=== PATIENT | female | born 1955 | race Caucasian/White ===

== ENCOUNTER 2021-04-23 09:58 | Inpatient (IN) ==
[2021-04-23] MEDS ORDERED: SODIUM CHLORIDE 0.9% 1000ML 1,000 ML IV ONE (10:16)
--- NOTE | 2021-04-23 10:18 | Emergency Department Note ---
Impression & Plan Pulmonary embolism, Hypoxia, Elevated troponin, SARS-CoV-2 positive ED Provider Note Name: TARAH LEVIN Age: 66 Sex: F Arrives Via: Walk-In Informant: Patient ED Provider: Carlos Pack MD Chief Complaint: Chest Pain Impression: As Per Impressions Above Medical Decision Makin yr old female with history DLP/HTN arrives with acute chest pain and olena rtness of breath this morning. Right foot in boot since fracture 3 weeks ago and has been having increasing right leg pain and swelling to thigh. Tachy and hypoxic on arrival which improved with NC. Not hypotensive. IV established and emergently sent to CT for PE study. Extensive clot, reviewed with CCM who agree with holding off on TPA currently, and will start with heparin bolus/gtt. He ma kes clear no recent injuries, headache nor rectal bleeding nor ulcer issues. Understands risks of blood thinner use. She is stable on NC O2 and HR improving with NSS bolus. Trop is elevated with some RBBB on EKG, suspect PE related rather than ACS. Covid is positive, though I will note she reports having had covid 1.5 months ago, this may have further contributed to her clotting issues? She what hospitalized on IV heparin for further management. Prior Medical Record and Triage/Nursing Notes reviewed by Me Additional history obtained from chart Differentials:Cardiac ischemia, aortic dissection, pulmonary embolism, pneumothorax, pneumonia, pericarditis, myocarditis, esophageal rupture, GERD, cholecystitis, pancreatitis, musculoskeletal, as well as other pathologies. Vital Signs: reviewed and remarkable for tachy, hypoxia Interventions: Heparin bolus/gtt Labs:Reviewed and remarkable for +trop, +covid Imaging:See Below EKG:Per My Interpretation: Indication Chest Pain: Sinus Tachy 118 bpm, qtc 431. Incomplete RBBB with diffuse ant/lat ST depressions. No ectopy. No previous for comparison Cardiac/Tele Monitoring: Cardiac Monitoring: An Order was placed for continuous cardiac monitoring. The monitor shows a rate of 115 with a sinus tachy rhythm. Consults:Dr Reina INFANTE Hospitalist Plan: Disposition:Hospitalization. Condition: Fair History of Present Illness:66 yr old female arrives for evaluation of chest pain. Patient notes she broke her right foot a few weeks ago and has been in a walking boot. The last few days increasing right leg swelling that has some discomfort to mid thigh. Associated with pain on ambulation. This morning acute onset bilateral chest pain and shortness of breath. Notes near syncope. Denies fevers, chills, cough, syncope, headache, neck pain, rashes, bleeding, rectal bleeding, abdominal pain, nausea, vomiting, back pain, nor other sy mptoms. No history of similar issues. No history of DVT/PE. Nothing makes better nor worse. No medications prior to arrival. ROS: See above HPI for pertinent positives & negatives. A total of 10 systems reviewed and were otherwise negative. Past Medical History:HTN, DLP Past Surgical History:None Family History:No History of PE/DVT Social History:Employed (currently on leave), non-smoker Home Medications:None Allergies:Penicillin Vitals:Blood Pressure: 150/100, Pulse 99, RR 24, T 36.7C, O2 96% on 2L NC Physical Exam: GENERAL: Patient is uncomfortable/anxious appearing and in mild distress. EYES: No scleral icterus, unremarkable pupils. ENT: Mucous membranes moist, no nasal congestion. NECK: No masses appreciated, nomeningismus, trachea is midline. RESPIRATORY: Mild tachypnea though no dyspnea. Clear to auscultation and equal bilaterally. No wheeze, no rhonchi. CARDIOVASCULAR: Tachy.No murmurs, rubs, gallops appreciated. GASTROINTESTINAL: Abdomen soft, non-tender, no peritonitis.Bowel sounds positive.No masses appreciated. BACK: No midline tenderness, no CVA tenderness EXTREMITIES: Swelling with nonpitting edema right lower leg from below knee with right foot in boot. Otherwise normal motion all extremities, no cyanosis, no edema. NEUROLOGIC: Alert and oriented, no acute motor or sensory deficits, no focal weakness, cranial nerves grossly intact. SKIN: No rash, no jaundice, no diaphoresis. PSYCH: Appropriate GCS: 15 ED Course: Times/Reassessments: stable, breathing comfortably Carlos Pack MD Past Med/Surg History Medical History (Updated 04/25/21 @ 09:32 by Marino Lopez) High cholesterol Hypertension Pulmonary embolism Right leg DVT Social History Smoking Status: Never smoker Preferred Language: Uzbek Communication Ability: Effective Brazer Induction Required: No Beliefs That Will Affect Care: None Current Living Situation: Significant Other Current Living Situation Comment: 1 story home Feels Safe at Home: Yes Assistive Devices: Glasses Allergies Allergies Allergy/AdvReac Type Severity Reaction Status Date / Time Penicillins Allergy Unknown Unknown Unverified 04/23/21 11:57 Home Meds Home Medications Medication Instructions Recorded Confirmed No Known Home Medications 04/23/21 04/23/21 Results & Data (ED) Vital Signs Vital Signs - 24 hr 04/23/21 10:03 04/23/21 10:20 04/23/21 10:30 Temperature 36.7 C Temperature Source Temporal Artery Scan Pulse Rate 119 H 115 H Pulse Rate from SpO2 Sensor 115 H Respiratory Rate 18 22 Blood Pressure 136/97 162/116 H Blood Pressure Mean 110 131 Pulse Oximetry 90 97 Oxygen Delivery Method Room Air Room Air Nasal Cannula Oxygen Flow Rate 2 Sepsis Recent Fever Within 48 Hours No Sepsis New/Unexplained Change in Mental Status No Sepsis Action Taken by Nursing No Action Required 04/23/21 11:00 04/23/21 11:30 04/23/21 12:00 Temperature Temperature Source Pulse Rate 117 H 122 H 116 H Pulse Rate from SpO2 Sensor 115 H Respiratory Rate 22 21 23 Blood Pressure 131/101 H 167/111 H 148/103 H Blood Pressure Mean 111 129 118 Pulse Oximetry 97 98 Oxygen Delivery Method Nasal Cannula Oxygen Flow Rate 2 Sepsis Recent Fever Within 48 Hours Sepsis New/Unexplained Change in Mental Status Sepsis Action Taken by Nursing 04/23/21 12:30 04/23/21 13:00 04/23/21 13:30 Temperature Temperature Source Pulse Rate 99 H 96 H 97 H Pulse Rate from SpO2 Sensor 99 H 97 H 99 H Respiratory Rate 21 19 19 Blood Pressure 136/92 119/86 123/97 Blood Pressure Mean 106 97 105 Pulse Oximetry 96 94 92 Oxygen Delivery Method Oxygen Flow Rate Sepsis Recent Fever Within 48 Hours Sepsis New/Unexplained Change in Mental Status Sepsis Action Taken by Nursing 04/23/21 14:00 Temperature Temperature Source Pulse Rate 99 H Pulse Rate from SpO2 Sensor 101 H Respiratory Rate 24 Blood Pressure 150/100 H Blood Pressure Mean 116 Pulse Oximetry 96 Oxygen Delivery Method Oxygen Flow Rate Sepsis Recent Fever Within 48 Hours Sepsis New/Unexplained Change in Mental Status Sepsis Action Taken by Nursing Laboratory Data Result diagrams: 04/24/21 06:34 04/23/21 10:15 Lab Results 04/23/21 04/23/21 04/23/21 Range/Units 10:15 10:15 10:15 WBC 9.62 (4.8-10.8) K/uL RBC 4.38 (4.2-5.4) M/uL Hgb 14.3 (12.0-16.0) g/dL POC Hgb (12.0-16.0) g/dl Hct 42.5 (37-47) % POC Hct (37-47) % MCV 97.0 (80-100) fL MCH 32.6 (25-34) pg MCHC 33.6 (32-36) g/dL RDW Std Deviation 47.1 H (36.4-46.3) fL RDW Coeff of Luis E 13.3 (11.5-14.5) % Plt Count 189 (130-400) K/uL MPV 9.9 (7.4-10.4) fL Immature Gran % (Auto) 0.2 % Neut % (Auto) 76.8 % Lymph % (Auto) 13.4 % Griggs % (Auto) 8.2 % Eos % (Auto) 1.0 % Baso % (Auto) 0.4 % Neut # (Auto) 7.38 H (1.4-6.5) K/uL Lymph # (Auto) 1.29 (1.2-3.4) K/uL Griggs # (Auto) 0.79 H (0.11-0.59) K/uL Eos # (Auto) 0.10 (0-0.5) K/uL Baso # (Auto) 0.04 (0-0.2) K/uL Immature Gran # (Auto) 0.02 (0.00-0.02) K/uL PT 9.3 (9.0-12.0) Seconds INR 0.9 (0.9-1.1) APTT 23.2 (21.0-31.0) Seconds PTT Ratio 0.9 POC Sodium (135-144) mmol/L Sodium 137 (136-145) mmol/L POC Potassium (3.3-5.0) mmol/L Potassium 3.9 (3.5-5.1) mmol/L POC Chloride (101-112) mmol/L Chloride 106 (98-107) mmol/L Carbon Dioxide 26 (21-32) mmol/L POC Total CO2 (24-31) mmol/L Anion Gap 5.0 (3-11) POC Anion Gap (16-25) mmol/L POC BUN (7-18) mg/dl BUN 18 (7-18) mg/dl Creatinine 0.81 (0.6-1.2) mg/dl POC Creatinine (0.6-1.3) mg/dl Est Cr Clr Drug Dosing 77.6 ml/min Est GFR ( Amer) 89.0 ml/min Est GFR (Non-Af Amer) 76.8 ml/min BUN/Creatinine Ratio 22.4 H (10-20) Glucose 112 H (70-99) mg/dl POC Glucose (other) (70-99) mg/dl Calcium 9.4 (8.5-10.1) mg/dl POC Ioniz Calcium Maurizio (1.12-1.32) mmol/l Magnesium 2.2 (1.8-2.4) mg/dl Total Bilirubin 0.5 (0.2-1) mg/dl Direct Bilirubin 0.1 (0-0.2) mg/dl AST 23 (15-37) U/L ALT 34 (12-78) U/L Alkaline Phosphatase 139 H (45-117) U/L Troponin I 0.209 H* (0-0.045) ng/ml Total Protein 7.8 (6.4-8.2) gm/dl Albumin 3.9 (3.4-5.0) gm/dl Lipase 149 (73-393) U/L Urine Color Urine Appearance (Clear) Urine pH (4.5-7.5) Ur Specific Clifton (1.000-1.030) Urine Protein (Negative) Urine Glucose (UA) (Negative) Urine Ketones (Negative) Urine Blood (Negative) Urine Nitrite (Negative) Urine Bilirubin (Negative) Urine Urobilinogen (Negative) Ur Leukocyte Esterase (Negative) COVID-19 Eval Order SARS-CoV-2 (PCR) (Negative) 04/23/21 04/23/21 04/23/21 Range/Units 10:22 11:31 11:31 WBC (4.8-10.8) K/uL RBC (4.2-5.4) M/uL Hgb (12.0-16.0) g/dL POC Hgb 13.9 (12.0-16.0) g/dl Hct (37-47) % POC Hct 41 (37-47) % MCV (80-100) fL MCH (25-34) pg MCHC (32-36) g/dL RDW Std Deviation (36.4-46.3) fL RDW Coeff of Luis E (11.5-14.5) % Plt Count (130-400) K/uL MPV (7.4-10.4) fL Immature Gran % (Auto) % Neut % (Auto) % Lymph % (Auto) % Griggs % (Auto) % Eos % (Auto) % Baso % (Auto) % Neut # (Auto) (1.4-6.5) K/uL Lymph # (Auto) (1.2-3.4) K/uL Griggs # (Auto) (0.11-0.59) K/uL Eos # (Auto) (0-0.5) K/uL Baso # (Auto) (0-0.2) K/uL Immature Gran # (Auto) (0.00-0.02) K/uL PT (9.0-12.0) Seconds INR (0.9-1.1) APTT (21.0-31.0) Seconds PTT Ratio POC Sodium 140 (135-144) mmol/L Sodium (136-145) mmol/L POC Potassium 4.0 (3.3-5.0) mmol/L Potassium (3.5-5.1) mmol/L POC Chloride 103 (101-112) mmol/L Chloride (98-107) mmol/L Carbon Dioxide (21-32) mmol/L POC Total CO2 25 (24-31) mmol/L Anion Gap (3-11) POC Anion Gap 17.0 (16-25) mmol/L POC BUN 18 (7-18) mg/dl BUN (7-18) mg/dl Creatinine (0.6-1.2) mg/dl POC Creatinine 0.7 (0.6-1.3) mg/dl Est Cr Clr Drug Dosing ml/min Est GFR ( Amer) ml/min Est GFR (Non-Af Amer) ml/min BUN/Creatinine Ratio (10-20) Glucose (70-99) mg/dl POC Glucose (other) 104 H (70-99) mg/dl Calcium (8.5-10.1) mg/dl POC Ioniz Calcium Maurizio 1.24 (1.12-1.32) mmol/l Magnesium (1.8-2.4) mg/dl Total Bilirubin (0.2-1) mg/dl Direct Bilirubin (0-0.2) mg/dl AST (15-37) U/L ALT (12-78) U/L Alkaline Phosphatase (45-117) U/L Troponin I (0-0.045) ng/ml Total Protein (6.4-8.2) gm/dl Albumin (3.4-5.0) gm/dl Lipase (73-393) U/L Urine Color Urine Appearance (Clear) Urine pH (4.5-7.5) Ur Specific Clif[place] (1.000-1.030) Urine Protein (Negative) Urine Glucose (UA) (Negative) Urine Ketones (Negative) Urine Blood (Negative) Urine Nitrite (Negative) Urine Bilirubin (Negative) Urine Urobilinogen (Negative) Ur Leukocyte Esterase (Negative) COVID-19 Eval Order Covid19 at [facility] SARS-CoV-2 (PCR) POSITIVE A* (Negative) 04/23/21 Range/Units 11:35 WBC (4.8-10.8) K/uL RBC (4.2-5.4) M/uL Hgb (12.0-16.0) g/dL POC Hgb (12.0-16.0) g/dl Hct (37-47) % POC Hct (37-47) % MCV (80-100) fL MCH (25-34) pg MCHC (32-36) g/dL RDW Std Deviation (36.4-46.3) fL RDW Coeff of Luis E (11.5-14.5) % Plt Count (130-400) K/uL MPV (7.4-10.4) fL Immature Gran % (Auto) % Neut % (Auto) % Lymph % (Auto) % Griggs % (Auto) % Eos % (Auto) % Baso % (Auto) % Neut # (Auto) (1.4-6.5) K/uL Lymph # (Auto) (1.2-3.4) K/uL Griggs # (Auto) (0.11-0.59) K/uL Eos # (Auto) (0-0.5) K/uL Baso # (Auto) (0-0.2) K/uL Immature Gran # (Auto) (0.00-0.02) K/uL PT (9.0-12.0) Seconds INR (0.9-1.1) APTT (21.0-31.0) Seconds PTT Ratio POC Sodium (135-144) mmol/L Sodium (136-145) mmol/L POC Potassium (3.3-5.0) mmol/L Potassium (3.5-5.1) mmol/L POC Chloride (101-112) mmol/L Chloride (98-107) mmol/L Carbon Dioxide (21-32) mmol/L POC Total CO2 (24-31) mmol/L Anion Gap (3-11) POC Anion Gap (16-25) mmol/L POC BUN (7-18) mg/dl BUN (7-18) mg/dl Creatinine (0.6-1.2) mg/dl POC Creatinine (0.6-1.3) mg/dl Est Cr Clr Drug Dosing ml/min Est GFR ( Amer) ml/min Est GFR (Non-Af Amer) ml/min BUN/Creatinine Ratio (10-20) Glucose (70-99) mg/dl POC Glucose (other) (70-99) mg/dl Calcium (8.5-10.1) mg/dl POC Ioniz Calcium Maurizio (1.12-1.32) mmol/l Magnesium (1.8-2.4) mg/dl Total Bilirubin (0.2-1) mg/dl Direct Bilirubin (0-0.2) mg/dl AST (15-37) U/L ALT (12-78) U/L Alkaline Phosphatase (45-117) U/L Troponin I (0-0.045) ng/ml Total Protein (6.4-8.2) gm/dl Albumin (3.4-5.0) gm/dl Lipase (73-393) U/L Urine Color Yellow Urine Appearance Clear (Clear) Urine pH 6.0 (4.5-7.5) Ur Specific Clifton 1.026 (1.000-1.030) Urine Protein Negative (Negative) Urine Glucose (UA) Negative (Negative) Urine Ketones Negative (Negative) Urine Blood Negative (Negative) Urine Nitrite Negative (Negative) Urine Bilirubin Negative (Negative) Urine Urobilinogen Negative (Negative) Ur Leukocyte Esterase Negative (Negative) COVID-19 Eval Order SARS-CoV-2 (PCR) (Negative) Administered Medications Acetaminophen (Acetaminophen 325 Mg Tab) 650 mg PO Q4H PRN PRN Reason: Pain or Fever Stop: 05/23/21 11:57 Last Admin: 04/23/21 22:20 Dose: 650 mg Documented by: [id number] Apixaban (Apixaban 5 Mg Tablet) 10 mg PO BID CORY Stop: 05/02/21 09:14 Last Admin: 04/25/21 20:17 Dose: 10 mg Documented by: [id number] Admin: 04/25/21 09:44 Dose: 10 mg Documented by: [id number] Discontinued Medications Heparin Sodium (Porcine) (Heparin Sod (Porcine) 1000 Unit/Ml) 1 units IV NOW ONE Stop: 04/23/21 11:03 Last Admin: 04/23/21 11:13 Dose: 5,000 units Documented by: [id number] Cosigned by: [id number] Heparin Sodium/Dextrose (Heparin Iv Adult Wt-Based Standard With Bolus Protocol) 1 ea IV NOW STA; Protocol Stop: 04/23/21 10:48 Last Admin: 04/23/21 11:29 Dose: Not Given Documented by: [id number] Sodium Chloride (Nss 1000ml) 1,000 mls @ 999 mls/hr IV .Q1H1M ONE Stop: 04/23/21 11:16 Last Infusion: 04/23/21 11:27 Dose: 0 mls/hr Documented by: [id number] Admin: 04/23/21 10:20 Dose: 999 mls/hr Documented by: [id number] Heparin Sodium/Dextrose (Heparin Sodium/Dextrose) 25,000 units in 500 mls @ 0.02 mls/hr IV .Q24H CORY; Protocol Stop: 05/23/21 11:14 Last Titration: 04/24/21 06:44 Dose: 0 units/hr, 0 mls/hr Documented by: [id number] Cosigned by: [id number] Titration: 04/24/21 06:43 Dose: 1,250 units/hr, 25 mls/hr Documented by: [id number] Cosigned by: [id number] Titration: 04/24/21 06:42 Dose: 0 units/hr, 0 mls/hr Documented by: [id number] Cosigned by: [id number] Titration: 04/23/21 18:12 Dose: 1,200 units/hr, 24 mls/hr Documented by: [id number] Cosigned by: [id number] Admin: 04/23/21 11:12 Dose: 1,250 units/hr, 25 mls/hr Documented by: [id number] Cosigned by: [id number] Heparin Sodium/Dextrose (Heparin Sodium/Dextrose) 25,000 units in 500 mls @ 24 mls/hr IV .[id number] [facility]; Protocol Stop: 05/23/21 12:29 Last Titration: 04/25/21 09:20 Dose: 0 units/hr, 0 mls/hr Documented by: [id number] Cosigned by: [id number] Titration: 04/25/21 09:03 Dose: 1,200 units/hr, 24 mls/hr Documented by: [id number] Cosigned by: [id number] Titration: 04/25/21 06:49 Dose: 1,200 units/hr, 24 mls/hr Documented by: [id number] Cosigned by: [id number] Admin: 04/25/21 03:34 Dose: 1,200 units/hr, 24 mls/hr Documented by: [id number] Cosigned by: [id number] Titration: 04/25/21 03:34 Dose: 1,200 units/hr, 24 mls/hr Documented by: [id number] Cosigned by: [id number] Titration: 04/24/21 18:49 Dose: 1,200 units/hr, 24 mls/hr Documented by: [id number] Cosigned by: [id number] Admin: 04/24/21 07:59 Dose: 1,200 units/hr, 24 mls/hr Documented by: [id number] Cosigned by: [id number] Titration: 04/24/21 07:58 Dose: 0 units/hr, 0 mls/hr Documented by: [id number] Cosigned by: [id number] Titration: 04/24/21 07:58 Dose: 1,200 units/hr, 24 mls/hr Documented by: [id number] Cosigned by: [id number] Titration: 04/24/21 06:48 Dose: 1,200 units/hr, 24 mls/hr Documented by: [id number] Cosigned by: [id number] Titration: 04/24/21 01:24 Dose: 1,200 units/hr, 24 mls/hr Documented by: [id number] Cosigned by: [id number] Admin: 04/23/21 22:05 Dose: 1,200 units/hr, 24 mls/hr Documented by: [id number] Cosigned by: [id number] Ioversol (Optiray 320 125ml) 121 ml IV ONCE ONE Stop: 04/23/21 10:38 Last Admin: 04/23/21 10:40 Dose: 121 ml Documented by: [id number] Metoprolol Tartrate (Metoprolol Tartrate 25 Mg Tab) 12.5 mg PO BID CORY Stop: 05/23/21 11:14 Last Admin: 04/23/21 11:26 Dose: 12.5 mg Documented by: [id number] Imaging Data Radiologist's Impression: Chest CTA 04/23/21 10:16 CT angio chest PE protocol CLINICAL HISTORY: PE TECHNIQUE: Multidetector row helical CT of the chest was performed. Coronal and sagittal reformations were obtained. Automated dose lowering techniques and/or adjustment according to patient size were utilized for this exam. Comparison: None available at the time of this dictation. FINDINGS: Lungs and pleura: Large calcified granulomas are seen, the largest in the left lower lobe. Heart and pericardium: Heart size is normal. No pericardial effusion. No right heart strain is seen. Vessels: There is a occlusive pulmonary embolus in the right main pulmonary artery with extension into multiple upper and lower lobar and segmental arteries. Segmental pulmonary embolus is seen in the left lingula and multiple segmental/subsegmental emboli are noted in the left lower lobe. Mediastinum and josé: Unremarkable. Chest wall and lower neck: Unremarkable. Abdomen: Unremarkable. Bones: Degenerative changes in the thoracic spine. IMPRESSION: Multiple pulmonary emboli involving the right main pulmonary artery, left lower lobe artery, and multiple segmental/subsegmental branches bilaterally. No evidence of right heart strain. ACT 112: Positive. There are findings on this exam that require communication between the performing entity and the patient following Patient Test Result Information Act ([place] Act 112) guidelines. Electronically signed by: Brett Jimenez M.D. 04/23/2021 10:52 AM Chest X-Ray 04/23/21 10:16 XR chest 1V portable CLINICAL HISTORY: Chest pain, shortness of breath. Recent right leg fracture. TECHNIQUE: Single frontal radiograph of the chest was obtained. Comparison: None available at the time of this dictation. FINDINGS: No lines and tubes are seen. The cardiomediastinal silhouette is normal. The lungs are clear. No evidence of pleural effusion or pneumothorax. IMPRESSION: No acute chest disease. ACT 112: Negative or not required by law. Electronically signed by: Brett Jimenez M.D. 04/23/2021 10:37 AM Discharge Plan Visit Data Chief Complaint: Cardiac Assessment Stated Complaint: PAIN IN R SIDE OF CHEST,SOB,R FT SURGERY 3WKS AGO ED Provider: Carlos Pack Discharge Problem: Pulmonary embolism, Hypoxia, Elevated troponin, SARS-CoV-2 positive Patient Disposition: Admitted As Inpatient Discharge Instructions Interventions: ED Discharge Assessment Last Done: 04/23/21 15:42 Discharge Problem: Pulmonary embolism Qualifiers: Pulmonary embolism type: multiple subsegmental (without acute cor pulmonale) Qualified Code(s): I26.94 - Multiple subsegmental pulmonary emboli without acute cor pulmonale
[2021-04-23 10:34] LABS: iSTAT Creatinine 0.7 mg/dl (0.6-1.3); iSTAT Hemoglobin 13.9 g/dl (12.0-16.0); iSTAT Ionized Calcium 1.24 mmol/l (1.12-1.32)
[2021-04-23] MEDS ORDERED: OPTIRAY 320 125ml IV ONE (10:37)
[2021-04-23 10:38] LABS: INR 0.9 (0.9-1.1); Partial Thromboplastin Ratio 0.9; Partial Thromboplastin Time 23.2 Seconds (21.0-31.0); Prothrombin Time 9.3 Seconds (9.0-12.0)
--- NOTE | 2021-04-23 10:38 | XRay Report ---
XR chest 1V portable CLINICAL HISTORY: Chest pain, shortness of breath. Recent right leg fracture. TECHNIQUE: Single frontal radiograph of the chest was obtained. Comparison: None available at the time of this dictation. FINDINGS: No lines and tubes are seen. The cardiomediastinal silhouette is normal. The lungs are clear. No evid ence of pleural effusion or pneumothorax. IMPRESSION: No acute chest disease. ACT 112: Negative or not required by law. Electronically signed by: Brett Jimenez M.D. 04/23/2021 10:37 AM
[2021-04-23] MEDS ORDERED: Heparin IV Adult Wt-Based Standard WITH Bolus Protocol IV STA (10:47)
--- NOTE | 2021-04-23 10:53 | CT Scan Report ---
CT angio chest PE protocol CLINICAL HISTORY: PE TECHNIQUE: Multidetector row helical CT of the chest was performed. Coronal and sagittal reformations were obtained. Automated dose lowering techniques and/or adjustment according to patient size were u tilized for this exam. Comparison: None available at the time of this dictation. FINDINGS: Lungs and pleura: Large calcified granulomas are seen, the largest in the left lower lobe. Heart and pericardium: Heart size is normal. No pericardial effusion. No right heart strain is seen. Vessels: There is a occlusive pulmonary embolus in the right main pulmonary artery with extension int o multiple upper and lower lobar and segmental arteries. Segmental pulmonary embolus is seen in the l eft lingula and multiple segmental/subsegmental emboli are noted in the left lower lobe. Mediastinum and josé: Unremarkable. Chest wall and lower neck: Unremarkable. Abdomen: Unremarkable. Bones: Degenerative changes in the thoracic spine. IMPRESSION: Multiple pulmonary emboli involving the right main pulmonary artery, left lower lobe artery, and mult iple segmental/subsegmental branches bilaterally. No evidence of right heart strain. ACT 112: Positive. There are findings on this exam that require communication between the performing entity and the patient following Patient Test Result Information Act ([place] Act 112) guidelines. Electronically signed by: Brett Jimenez M.D. 04/23/2021 10:52 AM
[2021-04-23 10:55] LABS: Albumin Level 3.9 gm/dl (3.4-5.0); BUN Creatinine Ratio 22.4 (10-20); Bilirubin Direct 0.1 mg/dl (0-0.2); Calcium 9.4 mg/dl (8.5-10.1); Creatinine Clr Calc Pharmacy 77.6 ml/min; Est GFR (Non-African American) 76.8 ml/min; Magnesium 2.2 mg/dl (1.8-2.4); Potassium 3.9 mmol/L (3.5-5.1)
[2021-04-23 11:01] LABS: Basophils # (auto) 0.04 K/uL (0-0.2); Basophils % (auto) 0.4 %; Hematocrit (blood only) 42.5 % (37-47); Hemoglobin 14.3 g/dL (12.0-16.0); Immature Granulocytes # (auto) 0.02 K/uL (0.00-0.02); Immature Granulocytes % (auto) 0.2 %; Lymphocytes # (auto) 1.29 K/uL (1.2-3.4); Lymphocytes % (auto) 13.4 %; Mean Corpuscular Hemoglobin 32.6 pg (25-34); Mean Corpuscular Hgb Conc 33.6 g/dL (32-36); Mean Platelet Volume 9.9 fL (7.4-10.4); Monocytes # (auto) 0.79 K/uL (0.11-0.59); Monocytes % (auto) 8.2 %; Neutrophils # (auto) 7.38 K/uL (1.4-6.5); Neutrophils % (auto) 76.8 %; Platelet Count 189 K/uL (130-400); RDW Coefficient of Variation 13.3 % (11.5-14.5); RDW Standard Deviation 47.1 fL (36.4-46.3); Red Blood Count 4.38 M/uL (4.2-5.4); White Blood Count 9.62 K/uL (4.8-10.8)
--- NOTE | 2021-04-23 11:01 | Critical Care Consultation ---
Date of Consultation April 23, 2021 Assessment & Plan (1) Pulmonary embolism: Systemic anticoagulation with heparin -Echocardiogram (2) Right leg DVT: Systemic anticoagulation with heparin (3) Fracture of right foot: Continue current treatment (4) Tachycardia: Metoprolol 12.5 mg twice daily (5) Hypertension: Will be controlled in short-term with metoprolol (6) High cholesterol: Follow-up with primary care physician Patient not requiring critical care services would defer to hospitalist team. Supervising Physician Co-Signing Physician Notes Dr. Pinto was resident physician during care of patient. I separately evaluated patient for jaramillo portions of the history and the exam. I was present during the critical portion of medical decision making, and I discussed the case with the resident. I generally agree with the findings and plan. Passey score of 64 class I very low risk, patient has history of relatively recent trauma of having foot run over by skid steer I believe this is an adequate contraindication to systemic TPA especially in the setting of relatively stable hemodynamics. Agree with starting heparin and low-dose beta-juancarlos for the tachycardia. Echocardiogram pending, stable for telemetry status, no evidence of cor pulmonale noted on CT scan or clinical exam History of Present Illness Reason for Consultation: Pulmonary embolism Requesting Physician: Renny Pack History of Present Illness Patient is a 66-year-old female with a significant past medical history of hypertension hyperlipidemia who does not take medications admittedly for those medical issues who approximately 3 weeks ago suffered a traumatic injury to her right lower extremity when forklift forks were dropped on her leg she is seeing a medical provider for this. She has 2 fractured bones in her foot and is wearing a orthopedic boot. She presented with chest pain and shortness of breath on CT scan she was found to have near saddle pulmonary emboli. She is not passed out, she is not in extremis. Her pulmonary embolism severity score is 64 which is low risk she is hemodynamically stable. Allergies Allergy/AdvReac Type Severity Reaction Status Date / Time Penicillins Allergy Unknown Unknown Unverified 04/23/21 11:57 Home Medications Medication Instructions Recorded Confirmed Type No Known Home Medications 04/23/21 04/23/21 History Patient History Medical History High cholesterol Hypertension Social History Smoking Status: Never smoker Feels Safe at Home: Yes Review of Systems Review of Systems: Mild right anterior chest pain with deep inspiration, otherwise a 10 point review of systems been reviewed and is otherwise negative Physical Exam Physical Exam: General: Alert. nontoxic. Skin: Warm, dry, Head: Atraumatic Ears, nose, mouth and throat: airway patent Cardiovascular: Normal peripheral perfusion Respiratory: no respiratory distress, mild tachypnea, speaks in full sentences Gastrointestinal: Non distended Musculoskeletal: Right lower extremity is wrapped in a bandage, it is swollen larger than the left lower extremity Results & Data Results & Data ([facility]) Vital Signs (Past 12 Hours) Vital Signs Temp Pulse Resp BP Pulse Ox 04/23/21 10:03 36.7 C 119 H 18 136/97 90 Laboratory Results 04/23/21 04/23/21 04/23/21 Range/Units 10:22 10:15 10:15 WBC (4.8-10.8) K/uL RBC (4.2-5.4) M/uL Hgb (12.0-16.0) g/dL POC Hgb 13.9 (12.0-16.0) g/dl Hct (37-47) % POC Hct 41 (37-47) % MCV (80-100) fL MCH (25-34) pg MCHC (32-36) g/dL RDW Std Deviation (36.4-46.3) fL RDW Coeff of Luis E (11.5-14.5) % Plt Count (130-400) K/uL MPV (7.4-10.4) fL Immature Gran % (Auto) % Neut % (Auto) % Lymph % (Auto) % Davie % (Auto) % Eos % (Auto) % Baso % (Auto) % Neut # (Auto) (1.4-6.5) K/uL Lymph # (Auto) (1.2-3.4) K/uL Davie # (Auto) (0.11-0.59) K/uL Eos # (Auto) (0-0.5) K/uL Baso # (Auto) (0-0.2) K/uL Immature Gran # (Auto) (0.00-0.02) K/uL PT 9.3 (9.0-12.0) Seconds INR 0.9 (0.9-1.1) APTT 23.2 (21.0-31.0) Seconds PTT Ratio 0.9 POC Sodium 140 (135-144) mmol/L Sodium 137 (136-145) mmol/L POC Potassium 4.0 (3.3-5.0) mmol/L Potassium 3.9 (3.5-5.1) mmol/L POC Chloride 103 (101-112) mmol/L Chloride 106 (98-107) mmol/L Carbon Dioxide 26 (21-32) mmol/L POC Total CO2 25 (24-31) mmol/L Anion Gap 5.0 (3-11) POC Anion Gap 17.0 (16-25) mmol/L POC BUN 18 (7-18) mg/dl BUN 18 (7-18) mg/dl Creatinine 0.81 (0.6-1.2) mg/dl POC Creatinine 0.7 (0.6-1.3) mg/dl Est Cr Clr Drug Dosing 77.6 ml/min Est GFR ( Amer) 89.0 ml/min Est GFR (Non-Af Amer) 76.8 ml/min BUN/Creatinine Ratio 22.4 H (10-20) Glucose 112 H (70-99) mg/dl POC Glucose (other) 104 H (70-99) mg/dl Calcium 9.4 (8.5-10.1) mg/dl POC Ioniz Calcium Maurizio 1.24 (1.12-1.32) mmol/l Magnesium 2.2 (1.8-2.4) mg/dl Total Bilirubin 0.5 (0.2-1) mg/dl Direct Bilirubin 0.1 (0-0.2) mg/dl AST 23 (15-37) U/L ALT 34 (12-78) U/L Alkaline Phosphatase 139 H (45-117) U/L Troponin I 0.209 H* (0-0.045) ng/ml Total Protein 7.8 (6.4-8.2) gm/dl Albumin 3.9 (3.4-5.0) gm/dl Lipase 149 (73-393) U/L 04/23/ Range/Units 10:15 WBC 9.62 (4.8-10.8) K/uL RBC 4.38 (4.2-5.4) M/uL Hgb 14.3 (12.0-16.0) g/dL POC Hgb (12.0-16.0) g/dl Hct 42.5 (37-47) % POC Hct (37-47) % MCV 97.0 (80-100) fL MCH 32.6 (25-34) pg MCHC 33.6 (32-36) g/dL RDW Std Deviation 47.1 H (36.4-46.3) fL RDW Coeff of Luis E 13.3 (11.5-14.5) % Plt Count 189 (130-400) K/uL MPV 9.9 (7.4-10.4) fL Immature Gran % (Auto) 0.2 % Neut % (Auto) 76.8 % Lymph % (Auto) 13.4 % Davie % (Auto) 8.2 % Eos % (Auto) 1.0 % Baso % (Auto) 0.4 % Neut # (Auto) 7.38 H (1.4-6.5) K/uL Lymph # (Auto) 1.29 (1.2-3.4) K/uL Davie # (Auto) 0.79 H (0.11-0.59) K/uL Eos # (Auto) 0.10 (0-0.5) K/uL Baso # (Auto) 0.04 (0-0.2) K/uL Immature Gran # (Auto) 0.02 (0.00-0.02) K/uL PT (9.0-12.0) Seconds INR (0.9-1.1) APTT (21.0-31.0) Seconds PTT Ratio POC Sodium (135-144) mmol/L Sodium (136-145) mmol/L POC Potassium (3.3-5.0) mmol/L Potassium (3.5-5.1) mmol/L POC Chloride (101-112) mmol/L Chloride (98-107) mmol/L Carbon Dioxide (21-32) mmol/L POC Total CO2 (24-31) mmol/L Anion Gap (3-11) POC Anion Gap (16-25) mmol/L POC BUN (7-18) mg/dl BUN (7-18) mg/dl Creatinine (0.6-1.2) mg/dl POC Creatinine (0.6-1.3) mg/dl Est Cr Clr Drug Dosing ml/min Est GFR ( Amer) ml/min Est GFR (Non-Af Amer) ml/min BUN/Creatinine Ratio (10-20) Glucose (70-99) mg/dl POC Glucose (other) (70-99) mg/dl Calcium (8.5-10.1) mg/dl POC Ioniz Calcium Maurizio (1.12-1.32) mmol/l Magnesium (1.8-2.4) mg/dl Total Bilirubin (0.2-1) mg/dl Direct Bilirubin (0-0.2) mg/dl AST (15-37) U/L ALT (12-78) U/L Alkaline Phosphatase (45-117) U/L Troponin I (0-0.045) ng/ml Total Protein (6.4-8.2) gm/dl Albumin (3.4-5.0) gm/dl Lipase (73-393) U/L
[2021-04-23] MEDS ORDERED: HEPARIN SOD (PORCINE) 1000 UNIT/ML IV ONE (11:02)
[2021-04-23 11:04] LABS: Bilirubin,Total 0.5 mg/dl (0.2-1); Total Protein 7.8 gm/dl (6.4-8.2); Troponin I 0.209 ng/ml (0-0.045)
--- NOTE | 2021-04-23 11:07 | Billing Data ---
Date of Service April 23, 2021 Coding Level of Care Code 97213 Inpt Consult Level 5
[2021-04-23] MEDS ORDERED: METOPROLOL TARTRATE 25 MG TAB PO SCH (11:15)
[2021-04-23] MEDS ORDERED: HEPARIN SODIUM/DEXTROSE 25,000 UNITS/500 ML BAG IV SCH (11:15)
[2021-04-23 11:49] LABS: Appearance Urine Clear (Clear); Bilirubin Urine Negative (Negative); Blood Urine Negative (Negative); Color Urine Yellow; Glucose Urine UA Negative (Negative); Ketones Urine Negative (Negative); Leukocyte Esterase Urine Negative (Negative); Nitrite Urine Negative (Negative); Protein Urine Negative (Negative); Specific Gravity Urine 1.026 (1.000-1.030); Urobilinogen Urine Negative (Negative)
[2021-04-23] MEDS ORDERED: Heparin IV Adult Wt-Based Standard *NO* Bolus Protocol IV ONE (11:58)
[2021-04-23] MEDS ORDERED: ACETAMINOPHEN 325 MG TAB PO PRN (11:58)
--- NOTE | 2021-04-23 12:14 | History & Physical Report ---
Date of Service April 23, 2021 Assessment & Plan (1) Pulmonary embolism: Plan: Patient will be admitted to Med/surg tele Patient is tachycardic due to pulmonary emboli. Given that this is likely secondary to decreased ambulation from foot fracture, patient will likely not need to be on anticoagulation lifelong. will place on heparin. (2) Right leg DVT: Plan: No imaging ordered. will defer to AM team if they feel it is warranted. At this point will treat as though patient has a DVT, given hsitory and presentation (3) Tachycardia: Plan: likely secondary to above problem. will hold of beta juancarlos (4) Hypertension: Plan: resume home meds (5) Fracture of right foot: Plan: consult Dr. Cid (6) High cholesterol: Plan: resume home meds History of Present Illness Chief Complaint: SOB Primary Care Provider: Sincere Potter PA-C 66 yo female with trauma presents to the hospital. Patient reports having an injury to her right foot. She follows with Dr. Cid, and is weight bearing as tolerated to right heel. She reports that this past thursday she has some redness in her right foot and pain that radiated up her right thigh. This subsided the next day. However today, the pain returned in her right leg but this time it was accompanied by right sided chest pain that was pleuritic in nature. The chest pain was accompanied by SOB. Allergies Allergy/AdvReac Type Severity Reaction Status Date / Time Penicillins Allergy Unknown Unknown Unverified 04/23/21 11:57 Home Medications Medication Instructions Recorded Confirmed Type No Known Home Medications 04/23/21 04/23/21 History Past Med/Surg History Medical History High cholesterol Hypertension Social History Smoking Status: Never smoker Feels Safe at Home: Yes Review of Systems Constitutional: no sweats and no malaise Eyes: no blind spots and no diplopia Ear, Nose, Mouth, Throat: no ear pain and no ear trauma Respiratory: + dyspnea and + pain on inspiration Cardiovascular: + chest pain; no chest pain with activity Gastrointestinal: no abdominal pain and no bloating Genitourinary: no dysuria and no urinary frequency Musculoskeletal: no back pain and no radicular pain Integumentary: no acne and no rash Neurologic: no gait abnormality Psychiatric: no behavioral changes and no hopelessness Endocrine: + fatigue; no polydipsia Hematologic / Lymphatic: no easy bleeding and no coagulopathy Physical Exam Constitutional: WD/WN, vitals as above Eyes: PERRL, conjunctivae normal, anicteric sclerae ENMT: external ear and nose normal, oropharynx normal Neck: trachea midline, no thyromegaly Respiratory: normal respiratory effort, lungs clear to auscultation Cardiovascular: Rate/Rhythm: regular rhythm and + tachycardic Heart Sounds: normal S1 and normal S2 Gastrointestinal (Abdomen): normal bowel sounds, soft, nontender, no hepatosplenomegaly Musculoskeletal: no cyanosis or clubbing, extremities motor strength 5/5 Skin: no rashes, warm and dry Neurologic: PERRL, EOMI, accommodation nl, no face palsy, no dysarthria Psychiatric: A+Ox3, euthymic affect Lymphatic: no cervical or axillary lymphadenopathy Results & Data Results & Data ([facility]) Vital Signs (Past 12 Hours) Vital Signs Temp Pulse Resp BP Pulse Ox 04/23/21 12:00 116 H 23 148/103 H 98 04/23/21 11:30 122 H 21 167/111 H 97 04/23/21 11:00 117 H 22 131/101 H 04/23/21 10:30 115 H 22 162/116 H 97 04/23/21 10:03 36.7 C 119 H 18 136/97 90 PG Care Time/CCT Total # of Minutes Spent Total Time Spent with Patient: Total time spent is greater than 50% in coordination of care (as documented) at patient's floor/unit and/or counseling patient: Coding Level of Care Code 75217 Initial Inpt Care Lvl 3 Diagnoses Pulmonary embolism I26.99 Right leg DVT I82.401 Tachycardia R00.0 Hypertension I10 Fracture of right foot S92.901A High cholesterol E78.00
[2021-04-23 17:51] LABS: Partial Thromboplastin Ratio 2.6
[2021-04-23 18:07] LABS: Partial Thromboplastin Time 69.1 Seconds (21.0-31.0)
[2021-04-23] MEDS: HEPARIN SODIUM/DEXTROSE 25,000 UNITS/500 ML BAG IV SCH (22:05)
[2021-04-24 01:23] LABS: Partial Thromboplastin Time 53.8 Seconds (21.0-31.0)
[2021-04-24 06:57] LABS: Basophils # (auto) 0.05 K/uL (0-0.2); Basophils % (auto) 0.7 %; Eosinophils # (auto) 0.12 K/uL (0-0.5); Eosinophils % (auto) 1.7 %; Hematocrit (blood only) 38.4 % (37-47); Immature Granulocytes # (auto) 0.02 K/uL (0.00-0.02); Immature Granulocytes % (auto) 0.3 %; Lymphocytes # (auto) 2.46 K/uL (1.2-3.4); Lymphocytes % (auto) 35.8 %; Mean Corpuscular Hemoglobin 32.2 pg (25-34); Mean Corpuscular Hgb Conc 33.9 g/dL (32-36); Mean Platelet Volume 10.1 fL (7.4-10.4); Monocytes # (auto) 0.68 K/uL (0.11-0.59); Monocytes % (auto) 9.9 %; Neutrophils # (auto) 3.54 K/uL (1.4-6.5); Neutrophils % (auto) 51.6 %; Platelet Count 159 K/uL (130-400); RDW Coefficient of Variation 13.5 % (11.5-14.5); RDW Standard Deviation 47.1 fL (36.4-46.3); Red Blood Count 4.04 M/uL (4.2-5.4); White Blood Count 6.87 K/uL (4.8-10.8)
[2021-04-24 07:18] LABS: Partial Thromboplastin Ratio 1.8
[2021-04-24 07:19] LABS: Partial Thromboplastin Time 47.2 Seconds (21.0-31.0)
--- NOTE | 2021-04-24 07:47 | Podiatry Consultation ---
Date of Consultation April 24, 2021 Assessment & Plan (1) Pulmonary embolism: Patient seen, evaluated and treated. Patient recently underwent open reduction internal fixation of right foot, DOS 03/25/21. She is weight bearing as tolerated to right heel from a surgical stand point. I did discuss previous plan of explant of hardware in four months will now be delayed due to PE. Patient understands. Thank you to Dr. Huang and the [facility] staff for there outstanding care of this Patient. Thank you for allowing me to participate in the care of the Patient. Pulmonary embolism type: multiple subsegmental (without acute cor pulmonale) Qualified Code(s): I26.94 - Multiple subsegmental pulmonary emboli without acute cor pulmonale (2) Right leg DVT: (3) Fracture of right foot: History of Present Illness Attending Physician: Richard Huang History of Present Illness Patient is status post 4 weeks status post ORIF lisfranc fracture right foot done, DOS 03.25.21. She experienced pain swelling ascending from surgical foot and leg as well as shortness of breath and chest pain. She was advised by office to present to ED immediately. Patient is seen at bedside this evening at [facility] ED holding. She notes her symptoms have decreased. Patient is on heparin drip for treatment of DVT with PE. 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 Beliefs That Will Affect Care: None Current Living Situation: Significant Other Current Living Situation Comment: 1 story home Feels Safe at Home: Yes Review of Systems Constitutional: as per Subjective / HPI Eyes: as per Subjective / HPI Ear, Nose, Mouth, Throat: as per Subjective / HPI Respiratory: as per Subjective / HPI Cardiovascular: as per Subjective / HPI Gastrointestinal: as per Subjective / HPI Genitourinary: as per Subjective / HPI Musculoskeletal: as per Subjective / HPI Integumentary: as per Subjective / HPI Neurologic: as per Subjective / HPI Psychiatric: as per Subjective / HPI Endocrine: as per Subjective / HPI Physical Exam Constitutional: WD/WN, vitals as above Eyes: PERRL, conjunctivae normal, anicteric sclerae ENMT: external ear and nose normal, oropharynx normal Neck: trachea midline, no thyromegaly Musculoskeletal: no cyanosis or clubbing, extremities motor strength 5/5 Skin: no rashes, warm and dry Neurologic: Epicritic sensation intact Psychiatric: A+Ox3, euthymic affect Results & Data ([facility]) Vital Signs (Past 12 Hours) Vital Signs Temp Pulse Pulse Resp BP Pulse Ox 04/24/21 01:00 36.4 C L 98 H 19 113/76 92 04/23/21 22:33 95 H 04/23/21 21:40 36.4 C L 93 H 16 138/90 96
[2021-04-24] MEDS: HEPARIN SODIUM/DEXTROSE 25,000 UNITS/500 ML BAG IV SCH (07:59)
--- NOTE | 2021-04-24 13:19 | Electrocardiogram Report ---
Test Reason : Blood Pressure : / mmHG Vent. Rate : 118 BPM Atrial Rate : 118 BPM P-R Int : 172 ms QRS Dur : 100 ms QT Int : 308 ms P-R-T Axes : 067 057 004 degrees QTc Int : 431 ms Sinus tachycardia Possible Left atrial enlargement Low voltage QRS Incomplete right bundle branch block Abnormal ECG No previous ECGs available Confirmed by Grayson Parra ([id number]) on 04/24/2021 1:19:29 PM Referred By: REFERRED SELF Confirmed By:Grayson Parra
--- NOTE | 2021-04-24 14:41 | XCELERA ---
[id number]
--- NOTE | 2021-04-24 20:49 | Hospitalist Progress Note ---
Date of Service April 24, 2021 Assessment & Plan (1) Pulmonary embolism: Plan: Due to suspected RLE DVT. Remains on small amount of NC O2 but chest symptoms are improved. Echo without RV strain. Echo right heart findings likely chronic. Remains on heparin drip. I don't see any contraindication to a DOAC. risk factors for VTE -- recent COVID (late February 2021) and recent right foot surgery. Suspect we can transition from heparin drip to eliquis tomorrow am. check doppler of RLE - r/o DVT. 6 months of Rx needed. (2) Right leg DVT: Plan: suspected doppler tomorrow (3) Tachycardia: Plan: 2nd to acute PEs resolved (4) Hypertension: Plan: BPs completely nl today hold amlodipine for now (5) Fracture of right foot: Plan: appreciate Dr Cid's consultation nothing acute to do for right foot at this time (6) High cholesterol: Plan: hold statin for now (7) Right ventricular dilation: Plan: likely chronic from undiagnosed/untreated POORNIMA needs sleep study near-future this was discussed w/ her during the visit today (8) Snoring: Plan: highly suspicious for POORNIMA - probably severe as above (9) Obesity (BMI 30-39.9): (10) SARS-CoV-2 positive: Plan: had clinical COVID in February 2021 suspect that the COVID test is simply picking up old, nonviable virus she has NO symptoms of COVID at this time likely NOT contagious we discussed that COVID testing can be positive for months following the infection CTA chest without any residual signs of her past COVID infection, no fibrosis, etc Plan: left message for son on his voicemail tonight wean O2 Admission and Anticipated Discharge Date Admission Date: April 23, 2021 Subjective patient feeling well no complaints dyspnea/pleuritic cp improved patient states she had COVID-19 in late February - probably got it at [facility] she tested negative at that time, but boyfriend tested + she had loss of taste/smell, followed by severe cough/flu like illness x 2 weeks smell/taste returned made complete recovery no personal or family history of DVT/PE has mild swelling/soreness over right medial distal thigh does snore chronically - "I wake myself up" (when she has apnea) Review of Systems Review of Systems: gen - good appetite, no fevers/chills/sweats HEENT - no URI symptoms; taste/smell wnl Pul - no cough GI - no N/V/D CV - no orthopnea musculo - mild right leg pain Physical Exam Physical Exam: gen - obese, NAD mouth - MMM neck - no JVD heart - RRR, s1 s2, no murmur lungs - cta b/l abd - soft NT ND BS+ ext - right distal medial thigh w/ focal swelling/warmth; trace edema ankle/foot on right skin - mild ecchymoses scattered on RLE Results & Data Results & Data ([facility]) Vital Signs (Past 12 Hours) Vital Signs Temp Pulse Resp BP BP Pulse Ox 04/24/21 19:00 36.7 C 80 18 136/81 98 04/24/21 15:56 36.3 C L 78 17 114/75 96 04/24/21 11:49 36.3 C L 78 16 114/77 96 Laboratory Results Laboratory Results - last 24 hr 04/24/21 04/24/21 04/24/21 00:44 06:34 06:34 WBC 6.87 RBC 4.04 L Hgb 13.0 Hct 38.4 MCV 95.0 MCH 32.2 MCHC 33.9 RDW Std Deviation 47.1 H RDW Coeff of Luis E 13.5 Plt Count 159 MPV 10.1 Immature Gran % (Auto) 0.3 Neut % (Auto) 51.6 Lymph % (Auto) 35.8 Lanier % (Auto) 9.9 Eos % (Auto) 1.7 Baso % (Auto) 0.7 Neut # (Auto) 3.54 Lymph # (Auto) 2.46 Lanier # (Auto) 0.68 H Eos # (Auto) 0.12 Baso # (Auto) 0.05 Immature Gran # (Auto) 0.02 APTT 53.8 H* 47.2 H* PTT Ratio 2.0 1.8 Diagnostic Findings echo -- mild RV dilatation with reduced systolic function; EF wnl; no pulm HTN PG Care Time/CCT Total # of Minutes Spent Total Time Spent with Patient: Total time spent is greater than 50% in coordination of care (as documented) at patient's floor/unit and/or counseling patient: Coding Level of Care Code 71334 Subseq Hosp Care Lvl 2 Diagnoses Pulmonary embolism I26.94 Pulmonary embolism type: multiple subsegmental (without acute cor pulmonale) Right leg DVT I82.401 Tachycardia R00.0 Hypertension I10 Fracture of right foot S92.901A High cholesterol E78.00 Right ventricular dilation I51.7 Snoring R06.83 Obesity (BMI 30-39.9) E66.9 SARS-CoV-2 positive U07.1 (1) Pulmonary embolism Pulmonary embolism type: multiple subsegmental (without acute cor pulmonale) Qualified Code(s): I26.94 - Multiple subsegmental pulmonary emboli without acute cor pulmonale
[2021-04-25] MEDS: HEPARIN SODIUM/DEXTROSE 25,000 UNITS/500 ML BAG IV SCH (03:34)
[2021-04-25 08:41] LABS: Partial Thromboplastin Ratio 2.1
[2021-04-25 08:44] LABS: Partial Thromboplastin Time 55.3 Seconds (21.0-31.0)
[2021-04-25] MEDS: APIXABAN 5 MG TABLET PO SCH ×2 (09:44→20:17)
--- NOTE | 2021-04-25 12:24 | Ultrasound Report ---
ULTRASOUND RIGHT LOWER EXTREMITY VENOUS CLINICAL HISTORY: Pulmonary embolus. Covid. COMPARISON STUDY: No priors. TECHNIQUE: Real-time, grayscale, and color Doppler sonography of the deep veins of the right lower ex tremity was performed from the inguinal crease to the calf. Compression and augmentation were utilize d. FINDINGS: There is nearly occlusive deep venous thrombosis in the popliteal vein which extends into t he calf within the posterior tibial vein. The common femoral and superficial femoral veins are patent and normally compressible. The greater saphenous vein and the profunda femoris vein at the junction with the common femoral vein are clear. IMPRESSION: There is nearly occlusive deep venous thrombosis in the popliteal vein which extends into the calf. ACT 112: Negative or not required by law. Electronically signed by: Maximo Lopez M.D. 04/25/2021 12:22 PM
--- NOTE | 2021-04-25 21:18 | Hospitalist Progress Note ---
Date of Service April 25, 2021 Assessment & Plan (1) Pulmonary embolism: Plan: Due to RLE DVT. Dyspnea and O2 requirement resolved. Echo without RV strain. Echo right heart findings likely chronic -- POORNIMA?? Remains on heparin drip. I don't see any contraindication to a DOAC. Stop heparin -- eliquis 10mg BID x 7 days; then 5mg BID thereafter. risk factors for VTE -- recent COVID (late February 2021) and recent right foot surgery. (2) Right leg DVT: Plan: doppler + for such as anticipated fortunately prox vessels are patent (3) Tachycardia: Plan: 2nd to acute PEs resolved (4) Hypertension: Plan: BPs completely nl today hold amlodipine (5) Fracture of right foot: Plan: appreciate Dr Cid's consultation nothing acute to do for right foot at this time (6) High cholesterol: Plan: hold statin for now (7) Right ventricular dilation: Plan: likely chronic from undiagnosed/untreated POORNIMA needs sleep study near-future this was discussed (8) Snoring: Plan: highly suspicious for POORNIMA - probably severe as above (9) Obesity (BMI 30-39.9): (10) SARS-CoV-2 positive: Plan: had clinical COVID in February 2021 suspect that the COVID test is simply picking up old, nonviable virus she has NO symptoms of COVID at this time likely NOT contagious we discussed that COVID testing can be positive for months following the infection CTA chest without any residual signs of her past COVID infection, no fibrosis, etc (11) Acute respiratory failure with hypoxia: Plan: 2nd PEs resolved 2-step before d/c home Plan: left message for son on his voicemail yesterday 2-step tomorrow then home Admission and Anticipated Discharge Date Admission Date: April 23, 2021 Subjective pt feels well no issues overnight cp, pleuritic pain, dyspnea, sandoval eating well mild right leg pain only Review of Systems 2 Review of Systems: gen - no fevers, good appetite, no fatigue cv - no cp pulm - snoring - chronic GI - diarrhea - ongoing Physical Exam Physical Exam: gen - obese, NAD mouth - MMM neck - no JVD heart - RRR, s1 s2, no murmur lungs - cta b/l abd - soft NT ND BS+ ext - right distal medial thigh w/ focal swelling/warmth - no changes skin - mild ecchymoses scattered on RLE and foot Results & Data Results & Data ([facility]) Vital Signs (Past 12 Hours) Vital Signs Temp Pulse Resp BP Pulse Ox 04/25/21 20:00 36.6 C 84 18 138/83 96 04/25/21 17:47 36.7 C 83 18 122/78 95 Laboratory Results Laboratory Results - last 24 hr 04/25/21 07:55 APTT 55.3 H* PTT Ratio 2.1 PG Care Time/CCT Total # of Minutes Spent Total Time Spent with Patient: Total time spent is greater than 50% in coordination of care (as documented) at patient's floor/unit and/or counseling patient: Coding Level of Care Code 09628 Subseq Hosp Care Lvl 3 Diagnoses Pulmonary embolism I26.94 Pulmonary embolism type: multiple subsegmental (without acute cor pulmonale) Right leg DVT I82.401 Tachycardia R00.0 Hypertension I10 Fracture of right foot S92.901A High cholesterol E78.00 Right ventricular dilation I51.7 Snoring R06.83 Obesity (BMI 30-39.9) E66.9 SARS-CoV-2 positive U07.1 Acute respiratory failure with hypoxia J96.01 (1) Pulmonary embolism Pulmonary embolism type: multiple subsegmental (without acute cor pulmonale) Qualified Code(s): I26.94 - Multiple subsegmental pulmonary emboli without acute cor pulmonale
[2021-04-26 07:43] LABS: Basophils # (auto) 0.05 K/uL (0-0.2); Basophils % (auto) 0.8 %; Eosinophils # (auto) 0.13 K/uL (0-0.5); Eosinophils % (auto) 2.2 %; Hematocrit (blood only) 39.2 % (37-47); Hemoglobin 13.4 g/dL (12.0-16.0); Immature Granulocytes # (auto) 0.01 K/uL (0.00-0.02); Immature Granulocytes % (auto) 0.2 %; Lymphocytes # (auto) 2.02 K/uL (1.2-3.4); Lymphocytes % (auto) 33.6 %; Mean Corpuscular Hemoglobin 32.2 pg (25-34); Mean Corpuscular Hgb Conc 34.2 g/dL (32-36); Mean Corpuscular Volume 94.2 fL (80-100); Mean Platelet Volume 9.5 fL (7.4-10.4); Monocytes # (auto) 0.68 K/uL (0.11-0.59); Monocytes % (auto) 11.3 %; Neutrophils # (auto) 3.12 K/uL (1.4-6.5); Neutrophils % (auto) 51.9 %; Platelet Count 161 K/uL (130-400); RDW Coefficient of Variation 13.2 % (11.5-14.5); RDW Standard Deviation 45.8 fL (36.4-46.3); Red Blood Count 4.16 M/uL (4.2-5.4); White Blood Count 6.01 K/uL (4.8-10.8)
[2021-04-26 08:17] LABS: BUN Creatinine Ratio 17.7 (10-20); Calcium 9.7 mg/dl (8.5-10.1); Creatinine Clr Calc Pharmacy 77.5 ml/min; Est GFR (African American) 80.5 ml/min; Est GFR (Non-African American) 69.4 ml/min; Potassium 4.2 mmol/L (3.5-5.1)
[2021-04-26 08:21] LABS: Troponin I 0.022 ng/ml (0-0.045)
[2021-04-26] MEDS: APIXABAN 5 MG TABLET PO SCH (08:23)
--- NOTE | 2021-04-26 15:18 | Discharge Summary ---
Date of Service date of admission - April 23, 2021 date of discharge - April 26, 2021 Admission HPI Per Admitting Provider 66 yo female with trauma presents to the hospital. Patient reports having an injury to her right foot. She follows with Dr. Cid, and is weight bearing as tolerated to right heel. She reports that this past thursday she has some redness in her right foot and pain that radiated up her right thigh. This subsided the next day. However today, the pain returned in her right leg but this time it was accompanied by right sided chest pain that was pleuritic in nature. The chest pain was accompanied by SOB. Principal Diagnosis acute hypoxic respiratory failure 2nd to PEs Discharge Exam gen - obese, NAD mouth - MMM neck - no JVD heart - RRR, s1 s2, no murmur lungs - cta b/l abd - soft NT ND BS+ ext - right distal medial thigh w/ focal swelling/warmth - no changes skin - mild ecchymoses scattered on RLE and foot Discharge Data Allergies Allergy/AdvReac Type Severity Reaction Status Date / Time Penicillins Allergy Unknown Unknown Unverified 04/23/21 11:57 Consultations Podiatry - Sincere Cid DPM Procedures Performed 1. echocardiogram - * EF 55-60% * mild LVH * right ventricle - moderately dilated * moderate tricuspid regurgitation * right ventricular systolic pressure is normal * grade 1 diastolic dysfunction 2. 2-step ambulatory O2 test - NO NEED FOR HOME O2 Ordered Studies Chest CTA 04/23/21 10:16 CT angio chest PE protocol CLINICAL HISTORY: PE TECHNIQUE: Multidetector row helical CT of the chest was performed. Coronal and sagittal reformations were obtained. Automated dose lowering techniques and/or adjustment according to patient size were utilized for this exam. Comparison: None available at the time of this dictation. FINDINGS: Lungs and pleura: Large calcified granulomas are seen, the largest in the left lower lobe. Heart and pericardium: Heart size is normal. No pericardial effusion. No right heart strain is seen. Vessels: There is a occlusive pulmonary embolus in the right main pulmonary artery with extension into multiple upper and lower lobar and segmental arteries. Segmental pulmonary embolus is seen in the left lingula and multiple segmental/subsegmental emboli are noted in the left lower lobe. Mediastinum and josé: Unremarkable. Chest wall and lower neck: Unremarkable. Abdomen: Unremarkable. Bones: Degenerative changes in the thoracic spine. IMPRESSION: Multiple pulmonary emboli involving the right main pulmonary artery, left lower lobe artery, and multiple segmental/subsegmental branches bilaterally. No evidence of right heart strain. ACT 112: Positive. There are findings on this exam that require communication between the performing entity and the patient following Patient Test Result Information Act ([place] Act 112) guidelines. Electronically signed by: Brett Jimenez M.D. 04/23/2021 10:52 AM Chest X-Ray 04/23/21 10:16 XR chest 1V portable CLINICAL HISTORY: Chest pain, shortness of breath. Recent right leg fracture. TECHNIQUE: Single frontal radiograph of the chest was obtained. Comparison: None available at the time of this dictation. FINDINGS: No lines and tubes are seen. The cardiomediastinal silhouette is normal. The lungs are clear. No evidence of pleural effusion or pneumothorax. IMPRESSION: No acute chest disease. ACT 112: Negative or not required by law. Electronically signed by: Brett Jimenez M.D. 04/23/2021 10:37 AM Venous Doppler Study 04/25/21 11:00 ULTRASOUND RIGHT LOWER EXTREMITY VENOUS CLINICAL HISTORY: Pulmonary embolus. Covid. COMPARISON STUDY: No priors. TECHNIQUE: Real-time, grayscale, and color Doppler sonography of the deep veins of the right lower extremity was performed from the inguinal crease to the calf. Compression and augmentation were utilized. FINDINGS: There is nearly occlusive deep venous thrombosis in the popliteal vein which extends into the calf within the posterior tibial vein. The common femoral and superficial femoral veins are patent and normally compressible. The greater saphenous vein and the profunda femoris vein at the junction with the common femoral vein are clear. IMPRESSION: There is nearly occlusive deep venous thrombosis in the popliteal vein which extends into the calf. ACT 112: Negative or not required by law. Electronically signed by: Maximo Lopez M.D. 04/25/2021 12:22 PM Hospital Course (1) Acute respiratory failure with hypoxia: 2nd PEs resolved O2 was weaned off prior to discharge 2-step ambulatory O2 test did not show a need for home O2 (2) Pulmonary embolism: Due to RLE DVT. Dyspnea and O2 requirements resolved prior to discharge. Echo without RV strain. Echo right heart findings likely chronic -- 2nd POORNIMA?? Initially treated with IV heparin infusion. Transitioned to Eliquis 10mg BID x 7 days; then 5mg BID thereafter. Recommend 6 months of Rx. Risk factors for VTE -- recent COVID infection (late February 2021) and recent right foot surgery. (3) Right leg DVT: doppler positive for DVTs. fortunately proximal vessels were patent. See #2 above. (4) Tachycardia: 2nd to acute PEs resolved (5) Hypertension: BPs were normal her entire stay. No BP meds needed at this time. (6) Fracture of right foot: Seen by Dr Sincere Cid - podiatry - who had performed her surgery on the foot in 03/2021. nothing acute to do for right foot at this time. f/u with Dr Cid as outpatient. (7) High cholesterol: previously took a statin for such. no longer on statin therapy. f/u with PCP for this issue. (8) Right ventricular dilation: likely chronic from undiagnosed/untreated POORNIMA needs sleep study near-future this was discussed in detail with the patient (9) Snoring: highly suspicious for POORNIMA - probably severe POORNIMA as above in #8 (10) Obesity (BMI 30-39.9): BMI 35.9 (11) SARS-CoV-2 positive: had clinical COVID-19 infection in February 2021 (she had significant respiratory illness with loss of taste/smell, and significant other had lab- confirmed COVID at that time) suspect that the COVID test this admission was simply picking up old, nonviable virus and yielding a positive test result she had NO symptoms of COVID while here likely NOT contagious at this time we discussed that COVID testing can be positive for months following the infection CTA chest without any residual signs of her past COVID infection, no fibrosis, etc (12) Calcified granuloma of lung: patient made aware of this CTA finding. this represents old environmental exposure, old infectious exposure, etc. nothing to do moving forward. Total Time Total Time Spent Total Time Spent (In Minutes): 50 Discharge Plan Discharge Items Patient Disposition: Home - Self-Care Reason For Visit: PULMONARY EMBOLI Discharge Diagnosis: 1. Pulmonary emboli (blood clots in lungs) 2. 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 Activity: As commented below Activity Comment: follow any instructions previously given by Dr Cid, podiatry Sexual Activity: Wait until after follow-up appointment Exercise/Sports: Wait until after follow-up appointment Driving/Machine Use: Resume 3 days after discharge Weightbearing: Right partial Non-emergency contact: Primary Care Provider Call non-emergency contact if: you have any medication questions, your symptoms worsen and you have a fever Follow-up/Referrals: Sincere Potter PA-C [Primary Care Provider] - 05/02/21 8:45 am (1 week ) Diet: Regular Silver Attending Provider Instructions: Mrs Andrews, You were hospitalized for pulmonary emboli blood clots in your lungs. These occurred as a result of DVT blood clots in your right leg. I suspect that your previous COVID-19 infection in February along with your recent foot surgery were the risk factors for these blood clots. You required oxygen for a short period of time and this has been weaned off. Your walking oxygen test on 04/26 was normal; thus, you do not need oxygen at home. You have been started on ELIQUIS blood thinner (see below). Your next dose of ELIQUIS is due TONIGHT. Your ELIQUIS should be taken as follows -- * 2 tabs by mouth TONIGHT (total of 10mg) * then, starting tomorrow morning, 10mg twice daily for 5 more days * then, starting next , take 5mg twice daily thereafter You will take the ELIQUIS for 6 months in total. The biggest risk factor with any blood thinner is bleeding as noted below. If you ever have bleeding please let your doctors know. In addition, your heart ultrasound showed mild right-sided heart enlargement. We often see this with sleep apnea (snoring). Please ask your family doctor about getting a sleep study as soon as possible. It might be prudent to repeat the echocardiogram in about 3 months as well. Finally, the CAT scan of the lungs showed granulomas in the bottom of the left lung. These are benign (not harmful) and typically due to left over "scar tissue" from previous exposure to things in the environment (fungus/mold, etc). Follow-up * family doctor within 1 week * Dr Cid - podiatry - as scheduled Return to any hospital if - * you have worsening shortness of breath * you have chest pains * you have any bleeding issues as listed below * any other concerns It was my pleasure to care for you at [facility]! -Dr Jessica Sheppard [employer] Provider Instructions: Blood thinner (anticoagulation) Medication Instructions: Your DVT and PEs are typically treated with an anticoagulant. Anticoagulants will thin your blood to help prevent new clots from forming. Your blood thinner is "ELIQUIS." * You should take your medication exactly as directed. * Never skip a dose. * Never take a double dose. If you miss a dose, take it as soon as you remember. Call your Primary Care doctor if you experience any of the following: * Swelling or Pain in your leg * Sudden, continuous pain deep in a muscle * Pain that worsens when you are active or when you stand still for a long time * Chest Pain * Sudden Shortness of Breath * Rapid or pounding heart beat * Fainting * Dizziness * Cough with blood or bloody sputum * Sweating more than normal * Bruises * Heavy or uncontrolled bleeding * Blood in your urine, stool or vomit * Black or tarry stools * Heavy nose bleeding Caring for Your Self at Home: * Avoid sitting, standing or lying down for long periods without moving your legs and feet * When traveling by car, stop to get out and move around at least once every 3 hours * On long airplane, train or bus rides, get up and move around when possible * If you can't get up, wiggle your toes and tighten your calves to keep your blood moving * Better to use an electric shaver for your legs or underarms rather than traditional razor (latter tends to cause more cuts and hence bleeding) Pending Studies at Discharge: No Stand-Alone Forms: My [facility], Smoking Cessation Medications and DC Order Prescriptions: New Eliquis 5 mg Tablet 5 mg PO DIRECTED Qty: 60 RF: 5 Discharge Orders: Discharge Order (Routine); Ordered 04/26/21 Ordered By: Marino Mares/Other Patient Handouts: Embolism Pulmonary Dc, ED Deep Vein Thrombosis (DVT) Admission Data Admit Date/Time: 04/23/21 11:57 Attending Provider: Marino Lopez Admit Provider: Richard Huang Primary Care Provider: Sincere Potter Other Providers: Jackie Cox ; Sincere Cid Other Interventions: Discharge Summary Assessment (RN) Last Done: 04/26/21 15:46 Coding Level of Care Code D/C DAY MANAGEMENT >30 MINS Diagnoses Pulmonary embolism I26.94 Pulmonary embolism type: multiple subsegmental (without acute cor pulmonale) Right leg DVT I82.401 Tachycardia R00.0 Hypertension I10 Fracture of right foot S92.901A High cholesterol E78.00 Right ventricular dilation I51.7 Snoring R06.83 Obesity (BMI 30-39.9) E66.9 SARS-CoV-2 positive U07.1 Acute respiratory failure with hypoxia J96.01 Calcified granuloma of lung J84.10
== END 2021-04-26 17:35 | disposition home or self-care (01) | DRG 175 ==
LOC: ED 09:58 → EDINP 11:57 → SUATTDRO 11:57 → 2W 15:42